=== PATIENT | female | born 1990 | race American Indian/Alaskan Native ===

== ENCOUNTER 2022-03-06 00:26 | Emergency (ER) | payer MEDICAID ==
[2022-03-06] MEDS ORDERED: levETIRAcetam 1000 MG/NS 0.75% 1,000 MG/100 ML BAG IV ONE (03:18)
--- NOTE | 2022-03-06 04:14 | Cat Scan Report ---
CT HEAD WITHOUT CONTRAST INDICATION / CLINICAL INFORMATION: headache. TECHNIQUE: CT head was performed without administration of intravenous contrast. All CT scans at this location are performed using CT dose reduction for ALARA by means of automated exposure control. COMPARISON: None available. FINDINGS: CEREBRAL HEMISPHERES: There is no evidence of large territorial infarction or significant abnormality of mcmillan-white matter differentiation. Ventricles within normal limits. No midline shift. Basal ciste rns patent. HEMORRHAGE: None. CEREBELLUM / BRAINSTEM: No significant abnormality. ORBITS: No significant abnormality. SOFT TISSUES: No significant abnormality. SKULL: No significant abnormality. PARANASAL SINUSES / MASTOID AIR CELLS: Normal as visualized. ADDITIONAL FINDINGS: None. IMPRESSION: 1. No acute intracranial abnormality. Signer Name: Jose Porter II, MD Signed: 03/06/2022 4:10 AM Workstation Name: [id number]
[2022-03-06 04:50] LABS: HCG Qualitative,Urine Negative (Negative)
--- NOTE | 2022-03-06 06:50 | Emergency Department Report ---
ED Seizure HPI - General Chief Complaint: Seizure Stated Complaint: SEIZURE Time Seen by Provider: 03/06/22 03:14 Source: EMS Mode of arrival: Stretcher Limitations: No Limitations - History of Present Illness Initial Comments: 32-year-old female with a known history of seizure requiring 1500 mg of Keppra twice daily who has been noncompliant with her medications for quite some time presents emerged department complaining of having a seizure episode that was triggered by a migraine that she was experiencing. States that the last episode was about 4 5 months ago. She reports no head trauma, no illicit drug use, no EtOH. Reports no fever, chills, sweats. No chest pain, no palpitations, no nausea vomiting. She does admit she denies any loss of bowel or bladder and then did note that she bite her tongue. Her seizure occurred while she was lying on the counter and a resting position and did not result in her falling MD Complaint: seizure Seizure History: known seizure disorder Place: home Associated Symptoms: denies: chest pain, confusion, loss of appetite, malaise, tongue injury, shoulder dislocation Treatments Prior to Arrival: none - Related Data Previous Rx's Medication Instructions Recorded Last Taken Type levETIRAcetam [Keppra] 1,000 mg PO BID #60 udc 03/06/22 Unknown Rx Allergies Allergy/AdvReac Type Severity Reaction Status Date / Time No Known Allergies Allergy Unverified 03/06/22 01:44 ED Review of Systems ROS: Stated complaint: SEIZURE Other details as noted in HPI ED Past Medical Hx - Past Medical History Previous Medical History?: No - Surgical History Past Surgical History?: No - Social History Smoking Status: Unknown if ever smoked - Medications Home Medications: Home Medications Medication Instructions Recorded Confirmed Last Taken Type levETIRAcetam [Keppra] 1,000 mg PO BID #60 udc 03/06/22 Unknown Rx ED Physical Exam - General Limitations: No Limitations ED Course Vital Signs 03/06/22 01:19 Temperature 98.2 F Pulse Rate 99 H Respiratory 18 Rate Blood Pressure 134/78 O2 Sat by Pulse 99 Oximetry ED Medical Decision Making - Radiology Data Radiology results: report reviewed [facility] [address] [place] [address] Cat Scan Report Signed Patient: SHERMAN PEREZ MR#: [id number] : 1990 Acct:[id number] Age/Sex: 32 / F ADM Date: 03/06/22 Loc: ED Attending Dr: Ordering Physician: YANE ZHENG Date of Service: 03/06/22 Procedure(s): CT head/brain wo con Accession Number(s): [id number] cc: YANE ZHENG CT HEAD WITHOUT CONTRAST INDICATION / CLINICAL INFORMATION: headache. TECHNIQUE: CT head was performed without administration of intravenous contrast. All CT scans at this location are performed using CT dose reduction for ALARA by means of automated exposure control. COMPARISON: None available. FINDINGS: CEREBRAL HEMISPHERES: There is no evidence of large territorial infarction or significant abnormality of mcmillan-white matter differentiation. Ventricles within normal limits. No midline shift. Basal cisterns patent. HEMORRHAGE: None. CEREBELLUM / BRAINSTEM: No significant abnormality. ORBITS: No significant abnormality. SOFT TISSUES: No significant abnormality. SKULL: No significant abnormality. PARANASAL SINUSES / MASTOID AIR CELLS: Normal as visualized. ADDITIONAL FINDINGS: None. IMPRESSION: 1. No acute intracranial abnormality. Signer Name: Romeo Guillaume II, MD Signed: 03/06/2022 4:10 AM Workstation Name: [id number] Transcribed By: AUDI Dictated By: ROMEO GUILLAUME II, MD Electronically Authenticated By: ROMEO GUILLAUME II, MD Signed Date/Time: 03/06/22409 DD/ 7 TD/TT: - Medical Decision Making Patient had a normal return to her baseline normal mental state normal physical function per my examination. Normal to compromised vision history and had no preceding fever. Does not have a history of alcohol abuse no suspicion for any other toxic ingestion. I considered but think less likely secondary etiologies of epileptic seizures to include drug/toxin etiologies, metabolic disturbances, acute CLERK ANALYST infections, intracranial hemorrhage/tumor/CVA. Presentation not consistent with nonepileptic's type seizure to include syncope, neurologic etiol ogies, impact seizure related to trauma. unlikely stroke. Plan is to restart patient on her Keppra medication and have her follow-up with neurology. Critical care attestation.: If time is entered above; I have spent that time in minutes in the direct care of this critically ill patient, excluding procedure time. ED Disposition Clinical Impression: History of seizures, Normal CT scan of head Disposition: HOME / SELF CARE / HOMELESS Is pt being admited?: No Does the pt Need Aspirin: No Condition: Stable Instructions: Seizure, Adult Additional Instructions: You have been seen by having waited emergency department today for a possible seizure. Your evaluation including labs and CT scan of your brain were unremarkable. Do not drive until you are cleared by a physician. Please follow-up with your primary care provider within 2 days or call one of the listed neurologist for an appointment. Return to the emergency department if you experience recurrent seizures, difficulty walking or moving your arms or legs, slurred speech, difficulty with normal activities, abnormal behavior, vision changes or any other concerning symptoms. Prescriptions: levETIRAcetam [Keppra] 1,000 mg PO BID #60 [facility] Referrals: PRIMARY MD DIOMEDES [Primary Care Provider] - 3-5 Days ROMEO VILLARREAL MD [Staff Physician] - 3-5 Days VANIA PETERSON MD [Referring] - 3-5 Days AGAPITO TIM [PHYSICIAN ACTUARY CLERK STUDENT] - 3-5 Days [facility] [Provider Group[facility] - 3-5 Days [facility] [Provider Group] - 3-5 Days
[2022-03-06 07:17] VITALS: BP 108/69
== END 2022-03-06 07:17 | disposition home or self-care (01) ==
LOC: ED 00:26
DX: G40.909 Epilepsy, unspecified, not intractable, without status epilepticus (principal); R93.0 Abnormal findings on diagnostic imaging of skull and head, not elsewhere classified
CPT/HCPCS: 70450; 81025; 96374; 99284; J1953

== ENCOUNTER 2022-07-30 09:00 | Emergency (ER) | payer MEDICAID ==
[2022-07-30 10:01] VITALS: BP 121/77
== END 2022-07-30 19:25 | disposition left against medical advice (07) ==
LOC: ED 09:00
DX: M79.605 Pain in left leg (principal); Z53.21 Procedure and treatment not carried out due to patient leaving prior to being seen by health care provider